=== PATIENT | female | born 1995 | race Caucasian/White ===

== ENCOUNTER 2016-12-18 12:55 | Emergency (ER) | payer SELFPAY ==
[2016-12-18] MEDS ORDERED: HYDROXYZINE PAMOATE 50 MG CAPSULE PO ONE (13:16)
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
[2016-12-18 14:15] VITALS: BP 125/79
--- NOTE | 2016-12-19 09:53 | EKG REPORT ---
SEVERITY:- NORMAL ECG - SINUS RHYTHM : Confirmed by: Rajat Yan 19-Dec-2016 09:52:09
== END 2016-12-18 14:32 | disposition home or self-care (01) ==
LOC: ER 12:55
DX: F41.9 Anxiety disorder, unspecified (principal); R07.9 Chest pain, unspecified; R11.10 Vomiting, unspecified
CPT/HCPCS: 93005; 93010; 99283

== ENCOUNTER 2017-04-20 14:17 | Emergency (ER) | payer OTHER ==
[2017-04-20] MEDS ORDERED: ASPIRIN 81 MG TABLET, CHEWABLE PO ONE (16:25)
--- NOTE | 2017-04-20 16:26 | ER Document Report ---
ED Medical Screen (RME) - General Mode of Arrival: Ambulatory Information source: Patient TRAVEL OUTSIDE OF THE [place] 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 Patient reports that she is only able to achieve some relief when closing her eyes. Patient is additionally complaining of worsening intermittent chest pain that started 5 days ago and describes it as stabbing for 30 seconds with 20 minutes of relief in between. Patient denies chest pain exacerbation with deep breathing or when laying flat, but states that the pain lasts longer when she is moving. Patient reports elevated heart rate between 150-180 per her Apple watch during her pain episodes. She explains that she has a WPW episode approximately once a week. (EMILY NICE) - Related Data Allergies/Adverse Reactions: codeine Allergy (Verified 12/18/16 12:57) hydrocodone Allergy (Verified 04/20/17 16:25) Past Medical History - General Information source: Patient - Social History Chew tobacco use (# tins/day): No Frequency of alcohol use: Occasional Drug Abuse: None Family history: Reviewed & Not Pertinent - Past Medical History Cardiac Medical History: Reports: Other - Parada Parkinsons White syndrome Renal/ Medical History: Denies: Hx Peritoneal Dialysis Past Surgical History: Reports: Hx Cardiac Surgery - ablation, Hx Tonsillectomy - Immunizations Hx Diphtheria, Pertussis, Tetanus Vaccination: No History of Influenza Vaccine for 04/2017 - 09/2017 Season: No <EMILY NICE - Last Filed: 04/20/17 17:35> Review of Systems - Review of Systems Constitutional: No symptoms reported EENT: No symptoms reported Cardiovascular: See HPI, Chest pain, Heart racing, Dizziness Respiratory: No symptoms reported Gastrointestinal: No symptoms reported Genitourinary: No symptoms reported Female Genitourinary: No symptoms reported Musculoskeletal: No symptoms reported Skin: No symptoms reported Hematologic/Lymphatic: No symptoms reported Neurological/Psychological: No symptoms reported -: Yes All other systems reviewed and negative <EMILY NICE - Last Filed: 04/20/17 17:35> Physical Exam - General General appearance: Alert In distress: None - Respiratory Respiratory status: No respiratory distress Breath sounds: Normal - Cardiovascular Rhythm: Regular Heart sounds: Normal auscultation Murmur: No Friction rub: No Gallop: None auscultated <EMILY NICE - Last Filed: 04/20/17 17:35> - Vital signs Vitals: Temp Pulse Resp BP Pulse Ox 98.4 F 79 18 137/77 H 98 04/20/17 14:33 04/20/17 14:33 04/20/17 14:33 04/20/17 14:33 04/20/17 14:33 Course - Laboratory Result Diagrams: 04/20/17 17:00 04/20/17 17:00 <EMILY NICE - Last Filed: 04/20/17 17:35> - Laboratory Result Diagrams: 04/20/17 17:00 04/20/17 17:00 <LETHA PRESSLEY - Last Filed: 04/20/17 20:44> - Re-evaluation Re-evalutation: 04/20/17 20:41 CBC unremarkable, d-dimer normal, CMP shows slightly elevated AST and ALT but she does not have any right upper quadrant pain, no evidence of obstruction, bilirubin unremarkable, CK somewhat elevated at 525 but CK-MB is normal at 2.03 , troponin negative at 0.012. Total protein slightly elevated, hCG negative, chest x-ray shows no acute process. 04/20/17 20:42 Discussed with patient that we have been unable to find her monitored bed thus far. She has been in the emergency department for over 5 hours. She has not had any further episodes of chest pain or heart racing. Patient will be discharged to home, states she feels much better, she will be referred to cardiology as an outpatient to have a Holter monitor applied. She will return should she have any sustained episodes of tachycardia. 04/20/17 20:43 Patient is now having some slight esophageal burning which she states is consistent with her usual heartburn. Patient will be treated with GI cocktail and discharged to home. (LETHA PRESSLEY) - Vital Signs Vital signs: Temp Pulse Resp BP Pulse Ox 98.4 F 79 18 137/77 H 98 04/20/17 14:33 04/20/17 14:33 04/20/17 14:33 04/20/17 14:33 04/20/17 14:33 - Laboratory Laboratory results interpreted by me: 04/20/17 17:00 Calcium 10.4 H AST 48 H ALT 71 H Creatine Kinase 525 H Total Protein 8.5 H - EKG Interpretation by Me Additional EKG results interpreted by me: 04/20/17 20:42 EKG is nonischemic, EKG shows sinus rhythm rate of 67, normal axis, normal intervals, no ST segment elevations or depressions, isolated nonspecific T-wave inversions in lead III per my interpretation. (LETHA PRESSLEY) Doctor's Discharge <EMILY NICE - Last Filed: 04/20/17 17:35> <LETHA PRESSLEY - Last Filed: 04/20/17 20:44> - Discharge Clinical Impression: Intermittent chest pain Condition: Stable Disposition: HOME, SELF-CARE Additional Instructions: Please follow-up with Dr. Carson or Dr. Al for Holter monitor. Should your chest pain come on and stay without going away please return to the emergency department. Referrals: VON AL MD [ACTIVE STAFF] - Follow up as needed KIANNA CARSON MD [EMERITUS] - Follow up as needed Scribe Documentation - Scribe Written by Domingaibe:: Sanya Pineda, 04/20/2017 1743 acting as scribe for :: John <EMILY NICE - Last Filed: 04/20/17 17:35>
[2017-04-20 17:28] LABS: ABSOLUTE BASOPHILS # (AUTO) 0.1 10^3/uL (0.0-0.2); ABSOLUTE LYMPHOCYTES (AUTO) 2.3 10^3/uL (0.5-4.7); ABSOLUTE MONOCYTES (AUTO) 0.6 10^3/uL (0.1-1.4); ABSOLUTE NEUT (AUTO) 5.1 10^3/uL (1.7-8.2); BASOPHILS % (AUTO) 0.7 % (0-2); EOSINOPHILS % (AUTO) 0.5 % (0-6); HEMATOCRIT 40.8 % (36.0-47.0); HEMOGLOBIN 13.8 g/dL (12.0-15.5); HGB HCT DIFFERENCE 0.6; MEAN CORPUSCULAR HEMOGLOBIN 29.6 pg (27.0-33.4); MEAN CORPUSCULAR HGB CONC 33.7 g/dL (32.0-36.0); MEAN CORPUSCULAR VOLUME 88 fl (80-97); MONOCYTES % (AUTO) 7.6 % (3-13); RED BLOOD COUNT 4.65 10^6/uL (3.72-5.28); RED CELL DISTRIBUTION WIDTH 13.8 % (11.5-14.0); SEGMENTED NEUTROPHILS % (AUTO) 63.2 % (42-78); WHITE BLOOD COUNT 8.1 10^3/uL (4.0-10.5)
--- NOTE | 2017-04-20 17:37 | RADIOLOGY REPORT (SQ) ---
EXAM DESCRIPTION: CHEST SINGLE VIEW COMPLETED DATE/TIME: 04/20/2017 5:26 pm REASON FOR STUDY: chest pain, tachycardia, h/o WPW COMPARISON: None. EXAM PARAMETERS: NUMBER OF VIEWS: One view. TECHNIQUE: Single frontal radiographic view of the chest acquired. RADIATION DOSE: NA LIMITATIONS: None. FINDINGS: LUNGS AND PLEURA: No opacities, masses or pneumothorax. No pleural effusion. MEDIASTINUM AND HILAR STRUCTURES: No masses. Contour normal. HEART AND VASCULAR STRUCTURES: Heart normal in size. Normal vasculature. BONES: No acute findings. HARDWARE: None in the chest. OTHER: No other significant finding. IMPRESSION: NO ACUTE RADIOGRAPHIC FINDING IN THE CHEST. TECHNICAL DOCUMENTATION: JOB ID: [id number]
[2017-04-20 17:42] LABS: ALANINE AMINOTRANSFERASE 71 U/L (9-52); ALKALINE PHOSPHATASE 80 U/L (38-126); ANION GAP 12 (5-19); ASPARTATE AMINO TRANSFERASE 48 U/L (14-36); BILIRUBIN,DIRECT 0.3 mg/dL (0.0-0.4); BILIRUBIN,TOTAL 0.7 mg/dL (0.2-1.3); BLOOD UREA NITROGEN 11 mg/dL (7-20); CALCIUM 10.4 mg/dL (8.4-10.2); CARBON DIOXIDE 28 mmol/L (22-30); CHLORIDE 104 mmol/L (98-107); CREATINE KINASE 525 U/L (30-135); GLUCOSE 85 mg/dL (75-110); POTASSIUM 4.4 mmol/L (3.6-5.0); SODIUM 144.4 mmol/L (137-145); TOTAL PROTEIN 8.5 g/dL (6.3-8.2)
[2017-04-20 17:53] LABS: CREATINE KINASE MB 2.03 ng/mL (<4.55)
[2017-04-20 17:58] LABS: TROPONIN I < 0.012 ng/mL
--- NOTE | 2017-04-20 19:57 | EKG REPORT ---
SEVERITY:- NORMAL ECG - SINUS RHYTHM : Confirmed by: Ciaran Carson MD 20-Apr-2017 19:57:05
[2017-04-20] MEDS ORDERED: MAG HYDROX/AL HYDROX/SIMETH SUSP 30 ML UDCUP PO ONE (20:40)
[2017-04-20] MEDS ORDERED: METOCLOPRAMIDE HCL ORAL SOLN 10 MG/10 ML UDCUP PO ONE (20:40)
[2017-04-20] MEDS ORDERED: LIDOCAINE 2% VISCOUS SOLN 20 ML UDCUP PO ONE (20:40)
[2017-04-20 21:04] VITALS: BP 127/83
== END 2017-04-20 20:59 | disposition home or self-care (01) ==
LOC: ER 14:17
DX: R07.9 Chest pain, unspecified (principal); I45.6 Pre-excitation syndrome; R42 Dizziness and giddiness; R19.8 Other specified symptoms and signs involving the digestive system and abdomen; R74.8 Abnormal levels of other serum enzymes; R74.0 Nonspecific elevation of levels of transaminase and lactic acid dehydrogenase [LDH]; Z98.890 Other specified postprocedural states; Z88.5 Allergy status to narcotic agent
CPT/HCPCS: 93005; 99285; 36415; 82553; 82550; 84703; 85025; 80053; 84484; 85379; 71010; 93010; J3490